=== PATIENT | female | born 1935 | race Caucasian/White ===

== ENCOUNTER 2016-09-29 09:49 | Emergency (ER) | payer MEDICARE ==
[2016-06-26 13:32] VITALS: BMI 21.1
[~2016-09-29 09:49] MED LIST: ACETAMINOPHEN500 M1 PO; AUGMENTIN 875-11 TAB PO; CELEXA20 MG PO; CLARITIN 10 MG10 MG PO; COLACE50 MG/5 ML PO; ESTER-C 500 MG1 TAB PO; FLINTSTONE1 TAB.CHEW PO; GENASYME80 MG PO; GLUCAGEN1 MG/VIAL IM; GUAIFENESI100 MG/5 M PO; KEPPRA SOLU100 MG/ML PO; LEVSIN/ANASP0.125 MG PO; MIRALAX17 GM PO; NORCO 7.5/325 T1 TA1 PO; PROMOD LIQUID P30 M1 PO; TAPAZOLE 5 MG TA5 MG PO; TUMS500 MG PO; ZOFRAN4 MG PO
== END 2016-09-29 15:40 | disposition home or self-care (01) ==
LOC: D.ER 09:49
DX: Z43.1 Encounter for attention to gastrostomy (principal); K21.9 Gastro-esophageal reflux disease without esophagitis; G47.00 Insomnia, unspecified; E78.5 Hyperlipidemia, unspecified; F41.9 Anxiety disorder, unspecified; M62.82 Rhabdomyolysis

== ENCOUNTER 2016-09-30 16:59 | Emergency (ER) | payer MEDICARE ==
[2016-06-26 13:32] VITALS: BMI 21.1
== END 2016-09-30 18:25 | disposition home or self-care (01) ==
LOC: D.ER 16:59
DX: Z43.1 Encounter for attention to gastrostomy (principal); F41.9 Anxiety disorder, unspecified; K21.9 Gastro-esophageal reflux disease without esophagitis; E78.5 Hyperlipidemia, unspecified; G47.00 Insomnia, unspecified